=== PATIENT | female | born 1985 | race Caucasian/White ===

== ENCOUNTER → 2018-09-05 | Outpatient (CLI) | payer BC | LOC: BMCIMAGING 08:01 | PROVIDERS: ATTEND Internal Medicine | DX: K80.20 Calculus of gallbladder without cholecystitis without obstruction (principal); K76.0 Fatty (change of) liver, not elsewhere classified ==

== ENCOUNTER 2018-09-21 14:28 | Emergency (ER) | payer BC ==
--- NOTE | 2018-09-21 14:46 | EDPHY ---
H & P Stated Complaint: s/p leyda fever, malaise Time Seen by Provider: 09/21/18 14:29 HPI/ROS: CHIEF COMPLAINT: Fatigue, fever, flu-like symptoms HISTORY OF PRESENT ILLNESS: The patient is approximately week status post cholecystectomy and presents to the ED with 2 days of fever, fatigue and flu- like symptoms. She complains of a mild sore throat. She has a slight dry nonproductive cough. She denies significant abdominal pain. She denies any hematemesis or melena. The patient denies any symptoms of dysuria. The patient checked her temperature earlier today and it was elevated at 101 degrees which prompted her visit to the emergency department. REVIEW OF SYSTEMS: A comprehensive 10 point review of systems is otherwise negative aside from elements mentioned in the history of present illness. Source: Patient Exam Limitations: No limitations - Personal History Current Tetanus/Diphtheria Vaccine: Yes Current Tetanus Diphtheria and Acellular Pertussis (TDAP): Yes - Medical/Surgical History Hx Asthma: No Hx Chronic Respiratory Disease: No Hx Diabetes: No Hx Cardiac Disease: No Hx Renal Disease: No Hx Cirrhosis: No Hx Alcoholism: No Hx HIV/AIDS: No Hx Splenectomy or Spleen Trauma: No Other PMH: leyda, R knee surgery, - Social History Smoking Status: Never smoked - Physical Exam Exam: General Appearance: Alert, no distress Eyes: Pupils equal and round no pallor or injection ENT, Mouth: Mucous membranes moist, mild pharyngeal erythema Respiratory: There are no retractions, lungs are clear to auscultation Cardiovascular: Regular rate and rhythm Gastrointestinal: Minimal tenderness noted at the surgical trocar incision site without significant surrounding erythema Neurological: 5/5 strength noted all 4 extremities Skin: Warm and dry, no rashes Musculoskeletal: Neck is supple nontender Extremities: symmetrical, full range of motion Constitutional: Initial Vital Signs Temperature (C) 37.1 C 09/21/18 14:32 Heart Rate 99 09/21/18 14:32 Respiratory Rate 16 09/21/18 14:32 Blood Pressure 134/89 H 09/21/18 14:32 O2 Sat (%) 96 09/21/18 14:32 O2 Delivery Mode Room Air Allergies/Adverse Reactions: amoxicillin Allergy (Verified 09/21/18 14:32) cefaclor [From Ceclor] Allergy (Verified 09/21/18 14:32) Home Medications: Medication Instructions Recorded Oseltamivir Phosphate [Tamiflu] 75 mg PO BID #10 cap 09/21/18 Medical Decision Making ED Course/Re-evaluation: Patient presents to the ED for evaluation of a postoperative fever 7 days following cholecystectomy. The patient is nontoxic well-appearing in the emergency department. She has a benign abdominal examination. She has nonspecific slight elevation of her transaminases refer felt to be typical of a postoperative state. The patient has no clinical evidence of pneumonia or meningitis. Her vital signs are stable. The patient's urinalysis demonstrated bacteriuria and pyuria. Given her absence of UTI symptoms a urine culture will be sent. Patient is influenza a positive. She will be offered Tamiflu given the duration of her symptoms. Differential Diagnosis: Differential diagnosis considered includes influenza, dehydration, viral syndrome, postoperative complication, UTI, pyelonephritis - Data Points Laboratory Results: Laboratory Results 09/21/18 14:50 09/21/18 14:50 09/21/18 09/21/18 09/21/18 14:50 14:50 14:50 WBC RBC Hgb Hct MCV MCH MCHC RDW Plt Count MPV Neut % (Auto) Lymph % (Auto) [place] % (Auto) Eos % (Auto) Baso % (Auto) Nucleat RBC Rel Count Absolute Neuts (auto) Absolute Lymphs (auto) Absolute Monos (auto) Absolute Eos (auto) Absolute Basos (auto) Absolute Nucleated RBC Immature Gran % Immature Gran # Sodium 140 mEq/L mEq/L (135-145) Potassium 4.0 mEq/L mEq/L (3.5-5.2) Chloride 106 mEq/L mEq/L (97-110) Carbon Dioxide 25 mEq/l mEq/l (22-31) Anion Gap 9 mEq/L mEq/L (6-14) BUN 16 mg/dL mg/dL (7-23) Creatinine 1.0 mg/dL mg/dL (0.6-1.0) Estimated GFR > 60 Glucose 101 mg/dL H mg/dL (70-100) Calcium 9.3 mg/dL mg/dL (8.5-10.4) Total Bilirubin 0.7 mg/dL mg/dL (0.1-1.4) Conjugated Bilirubin 0.2 mg/dL mg/dL (0.0-0.5) Unconjugated Bilirubin 0.5 mg/dL mg/dL (0.0-1.1) AST 62 IU/L H IU/L (14-46) ALT 157 IU/L H IU/L (9-52) Alkaline Phosphatase 126 IU/L IU/L (38-126) Total Protein 7.3 g/dL g/dL (6.3-8.2) Albumin 4.4 g/dL g/dL (3.5-5.0) Urine Color YELLOW Urine Appearance CLEAR Urine pH 5.0 (5.0-7.5) Ur Specific [place] 1.009 (1.002-1.030) Urine Protein NEGATIVE (NEGATIVE) Urine Ketones NEGATIVE (NEGATIVE) Urine Blood NEGATIVE (NEGATIVE) Urine Nitrate NEGATIVE (NEGATIVE) Urine Bilirubin NEGATIVE (NEGATIVE) Urine Urobilinogen NEGATIVE EU EU (0.2-1.0) Ur Leukocyte Esterase 1+ H (NEGATIVE) Urine RBC 1-3 /hpf /hpf (0-3) Urine WBC 5-10 /hpf H /hpf (0-3) Ur Epithelial Cells TRACE /lpf /lpf (NONE-1+) Urine Bacteria 3+ /hpf H /hpf (NONE SEEN) Urine Mucus TRACE /lpf /lpf (NONE-1+) Urine Glucose NEGATIVE (NEGATIVE) Nasal Influenza A PCR FLU A DETECTED H (NEGATIVE) Nasal Influenza B PCR NEGATIVE FOR FLU B (NEGATIVE) 09/21/18 14:50 WBC 7.72 10^3/uL 10^3/uL (3.80-9.50) RBC 4.82 10^6/uL 10^6/uL (4.18-5.33) Hgb 14.3 g/dL g/dL (12.6-16.3) Hct 41.4 % % (38.0-47.0) MCV 85.9 fL fL (81.5-99.8) MCH 29.7 pg pg (27.9-34.1) MCHC 34.5 g/dL g/dL (32.4-36.7) RDW 11.9 % % (11.5-15.2) Plt Count 263 10^3/uL 10^3/uL (150-400) MPV 10.0 fL fL (8.7-11.7) Neut % (Auto) 81.0 % H % (39.3-74.2) Lymph % (Auto) 9.5 % L % (15.0-45.0) [place] % (Auto) 7.6 % % (4.5-13.0) Eos % (Auto) 0.9 % % (0.6-7.6) Baso % (Auto) 0.5 % % (0.3-1.7) Nucleat RBC Rel Count 0.0 % % (0.0-0.2) Absolute Neuts (auto) 6.25 10^3/uL 10^3/uL (1.70-6.50) Absolute Lymphs (auto) 0.73 10^3/uL L 10^3/uL (1.00-3.00) Absolute Monos (auto) 0.59 10^3/uL 10^3/uL (0.30-0.80) Absolute Eos (auto) 0.07 10^3/uL 10^3/uL (0.03-0.40) Absolute Basos (auto) 0.04 10^3/uL 10^3/uL (0.02-0.10) Absolute Nucleated RBC 0.00 10^3/uL 10^3/uL (0-0.01) Immature Gran % 0.5 % % (0.0-1.1) Immature Gran # 0.04 10^3/uL 10^3/uL (0.00-0.10) Sodium Potassium Chloride Carbon Dioxide Anion Gap BUN Creatinine Estimated GFR Glucose Calcium Total Bilirubin Conjugated Bilirubin Unconjugated Bilirubin AST ALT Alkaline Phosphatase Total Protein Albumin Urine Color Urine Appearance Urine pH Ur Specific [place] Urine Protein Urine Ketones Urine Blood Urine Nitrate Urine Bilirubin Urine Urobilinogen Ur Leukocyte Esterase Urine RBC Urine WBC Ur Epithelial Cells Urine Bacteria Urine Mucus Urine Glucose Nasal Influenza A PCR Nasal Influenza B PCR Departure - Departure Disposition: Home, Routine, Self-Care Clinical Impression: Influenza A Condition: Good Instructions: Influenza (ED) Additional Instructions: 1. Take Ibuprofen or Motrin 600 mg by mouth three times a day. 2. Tylenol 650 mg every 6 hr as needed for pain and fever. 3. Tamiflu as directed for influenza. This medication needs to be started within 48 hr of symptoms for efficacy. 4. Please contact the emergency department tomorrow to check the results of your urine culture to ensure a concurrent UTI does not exist. 5. Please return to the ED for markedly worsening symptoms or other concerns. 6. Follow up with your primary care provider as needed. Referrals: Shannan Tyler MD [Primary Care Provider] - As per Instructions Prescriptions: Oseltamivir Phosphate [Tamiflu] 75 mg PO BID #10 cap
[2018-09-21 15:13] LABS: PLATELET COUNT 263 10^3/uL (150-400)
[2018-09-21 16:09] VITALS: BP 119/72
== END 2018-09-21 16:08 | disposition home or self-care (01) ==
DX: J09.X2 Influenza due to identified novel influenza A virus with other respiratory manifestations (principal)